=== PATIENT | female | born 1970 | race Caucasian/White ===

== ENCOUNTER 2019-06-02 06:05 | Inpatient (IN) ==
--- NOTE | 2019-05-28 11:35 | Anesthesiology Consultation ---
Date of Service May 28, 2019 Assessment & Plan (1) Encounter for pre-operative examination: Chart Review Chart Review: Acceptable Risk for Surgery (Pending labs) and Patient NOT seen in Pre Admission Testing History Surgery Operation Date: 06/02/19 07:30 Proposed Procedures p Navigational Bronchoscopy with ICG Dye, - Guevara Gunderson MD, FACS s Robotic Left Video Assisted Thoracoscopy with Wedge Resection - Guevara Gunderson MD, FACS Height/Weight Height: 5 ft 3 in Weight: 79.379 kg Allergies Allergy/AdvReac Type Severity Reaction Status Date / Time codeine AdvReac Vomiting Verified 05/14/19 11:37 Medications Home Medications Medication Instructions Recorded Confirmed Last Taken No Known Home Medications 05/14/19 05/14/19 Unknown Past Medical History Medical History Pulmonary nodule Past Family History Family History Father Family history of diabetes mellitus Past Surgical History Surgical History History of ankle surgery LEFT History of colonoscopy History of endometrial ablation History of tubal ligation History of umbilical hernia repair History of wisdom tooth extraction Nausea and vomiting after administration of anesthetic agent History of PONV History of PONV Social History Smoking Status: Never smoker Do You Dip or Chew Tobacco: No Hx Alcohol Use: No Hx Substance Use: No substance use type: does not use Testing Electrocardiogram Date: 01/21/19 Findings: + ST @ (118) Poor R-wave progression. Chest X-Ray Date: 01/21/19 Findings: + NAD
[~2019-06-02 06:05] MED LIST: LR 15ML/HR IV SCH
[2019-06-02 06:36] LABS: Hematocrit (blood only) 40.8 % (37-47); Mean Corpuscular Volume 88.3 fL (80-100); Platelet Count 292 K/uL (130-400); RDW Coefficient of Variation 13.9 % (11.5-14.5); RDW Standard Deviation 45.1 fL (36.4-46.3); Red Blood Count 4.62 M/uL (4.2-5.4); White Blood Count 6.72 K/uL (4.8-10.8)
[2019-06-02 06:40] LABS: Mean Corpuscular Hgb Conc 34.3 g/dL (32-36)
[2019-06-02 06:56] LABS: BUN Creatinine Ratio 16.8 (10-20); Creatinine Clr Calc Pharmacy 101.7 ml/min; Est GFR (African American) 119.4; Potassium 4.1 mmol/L (3.5-5.1)
[2019-06-02] MEDS ORDERED: MIDAZOLAM HCL 1 MG/ML 2ML VIAL ONE (06:58)
[2019-06-02] MEDS ORDERED: fentaNYL citrate 100 MCG/2 ML VIAL ONE (06:58)
[2019-06-02] MEDS ORDERED: ONDANSETRON INJ 2 MG/ML 2 ML VIAL IV PRN ×2 (07:02→13:08)
[2019-06-02] MEDS ORDERED: LABETALOL HCL IV 5 MG/ML 20ML IV PRN (07:02)
[2019-06-02] MEDS ORDERED: PROMETHAZINE HCL 6.25 MG in SODIUM CHLORIDE 0.9% 50 ML IV PRN (07:02)
[2019-06-02] MEDS ORDERED: KETOROLAC 30 MG/ML VIAL IV PRN (07:02)
[2019-06-02] MEDS ORDERED: ATROPINE SULFATE 0.1 MG/ML 10ML SYR IV PRN (07:02)
--- NOTE | 2019-06-02 07:08 | History & Physical Bridge Note ---
Date of Service June 02, 2019 History & Physical Bridge Note I have examined the patient, reviewed the History & Physical and in the interval since the performance of the History & Physical I have noted the following changes of clinical significance: no changes noted
[2019-06-02] MEDS ORDERED: SODIUM CHLORIDE 0.9% PF 50 ML VIAL ONE (07:19)
[2019-06-02] MEDS ORDERED: BUPIVACAINE LIPOSOME 1.3% 266 MG/20 ML VIAL ONE (07:19)
[2019-06-02] MEDS ORDERED: BUPIVACAINE 0.5 % 5 MG/1 ML MPF 30ML VIAL ONE (07:19)
--- NOTE | 2019-06-02 07:24 | History & Physical Report ---
Date of Service June 02, 2019 Assessment & Plan (1) Encounter for pre-operative examination: Present on Admission?: Yes (2) Pulmonary nodules/lesions, multiple: We are going to proceed with an elective electromagnetic navigational bronchoscopy and marking of at least 2 of the lesions on the left side. We will then proceed with a robot-assisted thoracoscopic wedge resection guided by the indocyanine green dye. We will do frozen section to have primary answer about what is causing these nodules. Present on Admission?: Yes History of Present Illness Chief Complaint: Dr. Gunderson is going to take some nodules out of my lung. Primary Care Provider: Denis Starr This very nice 48-year-old female that I met back in March. She has bilateral luminary nodules. They have been present for many years but they have begun to grow and now shows some hypermetabolic activity. He has no systemic symptoms whatsoever. I had a long talk with the patient and her on 04/08/2019 and again today on 06/02/2019. We discussed this again this morning. We are going to perform a navigational bronchoscopy and marking this with indocyanine green dye wedge out to left lung nodules. One is in the left upper lobe and one is in the left lower lobe. We discussed risk and benefits including pneumonias, blood clots, air leaks, etc. She understands. We will proceed today. Allergies Allergy/AdvReac Type Severity Reaction Status Date / Time codeine AdvReac Vomiting Verified 06/02/19 06:26 Home Medications Home Medications Medication Instructions Recorded Confirmed Type No Known Home Medications 05/14/19 06/02/19 History Past Med/Surg History Medical History Pulmonary nodules/lesions, multiple Pulmonary nodule Surgical History History of ankle surgery LEFT History of colonoscopy History of endometrial ablation History of tubal ligation History of umbilical hernia repair History of wisdom tooth extraction Nausea and vomiting after administration of anesthetic agent Family History Father Family history of diabetes mellitus Social History Preferred Language: Serbian Communication Ability: Effective Quality Auditor Required: No Beliefs That Will Affect Care: None Current Living Situation: Spouse Other Information That Helps Us Care for You: No Feels Safe at Home: Yes Safety Concerns: Feels Safe At This Time Smoking Status: Never smoker Do You Dip or Chew Tobacco: No Second Hand Exposure: No Hx Alcohol Use: No Hx Substance Use: No Review of Systems Review of Systems: All systems reviewed & are unremarkable except as noted in HPI & below Patient specifically denies productive cough, dyspnea on exertion, or hemoptysis. She has had no weight loss. Has had no exotic travel and has had no exposures to anyone with tuberculosis. She is not immunocompromise. The rest of her review of systems is unremarkable except for the fact that she broke her ankle and had surgery for repair. Physical Exam Physical Exam: This is a well-developed well-nourished female who is awake alert and oriented. Pupils are equal round reactive. Sclera anicteric. Teeth in good repair. Tongue is midline. She has no oral mucosal lesions. Her neck is thick but supple. She has no supraclavicular cervical lymphadenopathy carotid bruits or thyroid nodules. Her lungs are clear. She has a regular rate and rhythm of her heart. Her abdomen is soft nontender. She has good peripheral pulses. Her left ankle is improved. Neurologically she is completely intact. Results & Data Vital Signs (Past 12 Hours) Vital Signs Temp Pulse Resp BP Pulse Ox 06/02/19 06:27 36.9 C 71 20 134/90 99
[2019-06-02] MEDS ORDERED: CEFAZOLIN 2,000 MG/15 ML IV PUSH IV ONE (07:31)
[2019-06-02] MEDS: CEFAZOLIN 2000MG 2,000 MG/15 ML SYR IV ONE ×2 (07:49→13:38)
[2019-06-02] MEDS ORDERED: INDOCYANINE GREEN 25 MG/10 ML INJ ONE (08:52)
[2019-06-02] MEDS ORDERED: NEOSTIGMINE METHYLSULFATE 5 MG/5 ML SYR ONE (10:10)
[2019-06-02] MEDS ORDERED: DEXAMETHASONE SOD INJ 4 MG/ML VIAL ONE (10:10)
[2019-06-02] MEDS ORDERED: PHENYLEPHRINE 100MCG/ML 5ML SYR ONE (10:10)
[2019-06-02] MEDS ORDERED: ROCURONIUM BROMIDE 10 MG/ML 5 ML VIAL ONE (10:10)
[2019-06-02] MEDS ORDERED: LIDOCAINE HCL 2% 2 ML VIAL/AMP(20MG/ML) INFIL ONE (10:10)
[2019-06-02] MEDS ORDERED: LARYING-O-JET KIT (LTA) ONE (10:10)
[2019-06-02] MEDS ORDERED: ONDANSETRON INJ 2 MG/ML 2 ML VIAL ONE (10:10)
[2019-06-02] MEDS ORDERED: ePHEDrine sulfate 50 MG/ML SYR ONE (10:10)
[2019-06-02] MEDS ORDERED: PROPOFOL IV EMULSION 10 MG/ML 20 ML VIAL IV ONE (10:10)
[2019-06-02] MEDS ORDERED: GLYCOPYRROLATE 0.2 MG/ML VIAL ONE (10:10)
--- NOTE | 2019-06-02 10:17 | Post Operative Brief Note ---
Immediate Post Op Note v1 Date of Surgery June 02, 2019 Pre & Post Diagnosis Operation Date: 06/02/19 07:30 Pre-Op Diagnosis: Left Pulmonary Nodules Post-Op Diagnosis: Apparent spindle cell tumor Procedure Operation Date: 06/02/19 07:30 Actual Procedures p Navigational Bronchoscopy with ICG Dye, - Guevara Gunderson MD, FACS s Robotic Left Video Assisted Thoracoscopy with Wedge Resection(Left) - Guevara Gunderson MD, FACS Surgeon Guevara Gunderson MD, FACS Branch [employer] Executive Yamel SINCLAIR, Janette Mcintyre CC3 Estimated Blood Loss 10 Findings Consistent with Post-Op Diagnosis Drains Chest Tube
[2019-06-02] MEDS ORDERED: METOCLOPRAMIDE HCL INJ 5 MG/ML 2 ML VIAL IV ONE (10:35)
--- NOTE | 2019-06-02 10:51 | XRay Report ---
XR chest 1V portable HISTORY: 48 years-old Female left lung wedge resection status post wedge resection of the left lung COMPARISON: Chest CT 04/21/2019 TECHNIQUE: Portable AP view of the chest FINDINGS: Patient is side bent. Cardiac silhouette is upper limits of normal in size. Lungs are hypoinflated wi th bronchovascular crowding. Interstitial coarsening throughout the left lung with bibasilar opacitie s. Left-sided chest tube terminates adjacent to the left lung apex. No definite pneumothorax identifi ed. Minimal subcutaneous emphysema about the lateral left chest wall. No large pleural effusion. Bone s appear grossly intact. IMPRESSION: 1. Left-sided chest tube terminates adjacent to the left lung apex. No definite pneumothorax identifi ed. 2. Hypoinflated lungs with bronchovascular crowding and bibasilar opacities. The above report was generated using voice recognition software. It may contain grammatical, syntax o r spelling errors. Electronically signed by: Tushar Sharpe M.D. 06/02/2019 10:50 AM
[2019-06-02] MEDS: HYDROmorphone INJ 1 MG/ML SYRINGE IV PRN ×4 (11:04→11:20)
--- NOTE | 2019-06-02 12:28 | Fluoroscopy Report ---
FL chest 1V frontal CLINICAL HISTORY: NAVIGATIONAL BRONCH COMPARISON STUDY: Chest CT April 21, 2019. FLUOROSCOPY TIME: 50 seconds. FLUOROSCOPIC IMAGES: 1. FINDINGS: This image was obtained during navigational bronchoscopy within the left lung. IMPRESSION: Fluoroscopic image from navigational bronchoscopy within the left lung. Electronically signed by: Vic Todd M.D. 06/02/2019 12:27 PM
--- NOTE | 2019-06-02 13:20 | Anesthesiology Progress Note ---
Date of Service June 02, 2019 Anesthesia Post Procedure Vital Signs Vital Signs: Temp Pulse Pulse Pulse Resp BP BP 06/02/19 12:30 84 17 127/78 06/02/19 12:25 85 17 120/79 06/02/19 12:20 84 21 124/83 06/02/19 12:15 85 21 119/83 06/02/19 12:10 82 20 123/85 06/02/19 12:05 80 23 127/84 06/02/19 12:02 36.4 C L 06/02/19 12:00 82 24 133/86 06/02/19 11:55 80 23 120/82 06/02/19 11:54 84 16 06/02/19 11:50 83 23 125/82 06/02/19 11:45 77 21 132/88 06/02/19 11:40 79 21 124/89 06/02/19 11:35 77 22 125/79 06/02/19 11:31 81 20 06/02/19 11:30 78 17 126/81 06/02/19 11:26 16 126/81 06/02/19 11:25 78 21 06/02/19 11:21 77 20 128/83 06/02/19 11:20 81 22 06/02/19 11:17 80 22 06/02/19 11:16 80 22 136/93 06/02/19 11:15 78 23 06/02/19 11:10 78 24 137/93 06/02/19 11:05 79 24 136/97 06/02/19 11:01 78 21 137/97 06/02/19 11:00 78 24 06/02/19 10:55 79 20 144/89 H 06/02/19 10:51 84 22 129/82 06/02/19 10:50 83 24 06/02/19 10:46 85 24 145/81 H 06/02/19 10:45 91 H 21 06/02/19 10:42 94 H 17 159/103 H 06/02/19 10:41 36.0 C L 98 H 20 159/103 H 06/02/19 06:27 36.9 C 71 20 134/90 Pulse Ox 06/02/19 12:30 93 06/02/19 12:25 93 06/02/19 12:20 93 06/02/19 12:15 93 06/02/19 12:10 92 06/02/19 12:05 93 06/02/19 12:02 06/02/19 12:00 93 06/02/19 11:55 93 06/02/19 11:54 92 06/02/19 11:50 92 06/02/19 11:45 06/02/19 11:40 06/02/19 11:35 06/02/19 11:31 94 06/02/19 11:30 06/02/19 11:26 93 06/02/19 11:25 93 06/02/19 11:21 93 06/02/19 11:20 94 06/02/19 11:17 94 06/02/19 11:16 95 06/02/19 11:15 95 06/02/19 11:10 95 06/02/19 11:05 94 06/02/19 11:01 93 06/02/19 11:00 92 06/02/19 10:55 94 06/02/19 10:51 91 06/02/19 10:50 92 06/02/19 10:46 94 06/02/19 10:45 96 06/02/19 10:42 96 06/02/19 10:41 95 06/02/19 06:27 99 Pain Intensity Left Chest: Pain Intensity: 3 Transfer of Care Handoff Completed per policy Notes Mental Status: alert / awake / arousable Patient Amnestic to Procedure: Yes Nausea / Vomiting: adequately controlled Pain: adequately controlled Airway Patency, RR, SpO2: stable & adequate BP & HR: stable & adequate Hydration State: stable & adequate Anesthetic Complications: no major complications apparent
--- NOTE | 2019-06-02 13:59 | Operative Report ---
DATE OF OPERATION: 06/02/2019 PREOPERATIVE DIAGNOSIS: Multiple pulmonary nodules. 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 SURGEON: Guevara Gunderson MD LETTERER: DOTTIE Beltran and sepideh Allred warehouse stock clerk 3 (Mr. Curtis was present for the entire case at the patient's bedside while I was at the console and closed incisions at the end). PROCEDURES: 1. Electromagnetic navigational bronchoscopy with marking of left upper lobe lesion and lingular lesion with indocyanine green dye. 2. Robot-assisted thoracoscopic wedge resection and lymph node biopsy, both upper lobe and lingula. ANESTHESIA: General anesthesia endotracheal intubation. INDICATION FOR PROCEDURE AND FINDINGS: Lainey Garza is a 48-year-old female who was found to have bilateral nodules which have been present for several years, but appeared to be getting slightly larger, showed some hypermetabolic activity on PET scan. For this reason, we were asked to see her and I felt that we could marge two of these lesions on the left and hopefully wedge out both. On 06/02/2019, the patient was brought to the operating room and underwent an uncomplicated electromagnetic navigational bronchoscopy and marking of these 2 left upper lobe lesions. We then proceeded with a robot-assisted thoracoscopic wedge resection of the lingular mass and some other odd-appearing masses on the surface of the lung. We also took out a couple of lymph nodes, one of which was a bit larger level 10. She really did not have an early conclusion of the case, did well. Frozen section showed this to be a spindle cell tumor. We have to wait for immunohistochemical stains to clarify this diagnosis more. DESCRIPTION OF PROCEDURE: The patient was brought to the operating room and laid in supine position. General anesthesia induced and endotracheal intubation was performed with a single lumen tube. A fiberoptic bronchoscope was placed and the airway was inspected. There were no endobronchial lesions nor were there really any mucus. The navigational probe from [facility] was then loaded through the working channel and we registered the airways. I then went up to the left upper lobe mass and marked this with 0.5 mL of indocyanine green with 5 mL of air. We then went down into the lingula and I repeated this. We were able to marge these and got ourselves to them with the [employer] navigational probe as well as a radial ultrasound. After the bronchoscope was removed, we turned the patient into the right lateral decubitus position and her left chest prepped and draped in usual sterile fashion. It should be noted, we called the timeout and gave prophylactic antibiotics before the bronchoscopy. We then placed 4 different ports. We placed a single 8.5 camera port a bit anterior to the mid axillary line in the seventh interspace. One lung ventilation ensued. We then placed two 8 mm ports anterior and posterior, assistance port anteriorly just above the diaphragm. We injected each of these ports with Exparel solution. We mixed with 20 mL of 266 mg of Exparel with 30 mL of 0.5% bupivacaine and 250 mL of normal saline. Not only were these used to inject each of the 4 ports, but also the intercostal space from the 2nd through 11th rib. After entering, we could see there were no adhesions. We had pretty good fissures. Using the fluorescence, we were able to see the mass in the lingula and we wedged out a fairly good size portion of the lingula. We then went after the second one, although we could see the dye and we wedged this out, it did not have the solid consistency of the first mass. We then irrigated out the chest, really did not see much of the air leak. We dissected out a large level 10 node as well as a level 11 node. I put a 24-Bhutanese chest tube via the electrical assistant's port and directed towards the apex. This was held in place with heavy silk suture. A 4-0 Monocryl was used to close the other 3 incisions. The patient tolerated the procedure quite well, was extubated and then transported back to the postanesthesia care unit in stable condition. I attest to the content of the Intraoperative Record and any orders documented therein. Any exception s are noted below.
[2019-06-02] MEDS: D5W AND 1/2NSS 1,000 ML IV SCH ×2 (14:08→22:44)
[2019-06-02] MEDS: ACETAMINOPHEN 1,000 MG/100 ML VIAL IV SCH ×2 (14:08→21:21)
[2019-06-02] MEDS: METOCLOPRAMIDE HCL INJ 5 MG/ML 2 ML VIAL IV SCH (18:42)
[2019-06-02] MEDS: TRAMADOL HCL 50 MG TABLET PO PRN (18:42)
[2019-06-02] MEDS: DOCUSATE SODIUM 100 MG CAP PO SCH (21:21)
[2019-06-03] MEDS: METOCLOPRAMIDE HCL INJ 5 MG/ML 2 ML VIAL IV SCH (03:40)
[2019-06-03] MEDS: TRAMADOL HCL 50 MG TABLET PO PRN (04:21)
[2019-06-03 05:51] LABS: Prothrombin Time 10.6 Seconds (9.0-12.0)
[2019-06-03] MEDS: ACETAMINOPHEN 1,000 MG/100 ML VIAL IV SCH (06:25)
--- NOTE | 2019-06-03 07:08 | XRay Report ---
XR chest 1V portable HISTORY: 48 years-old Female left wedge resection status post left-sided wedge resection COMPARISON: Chest radiograph 06/02/2019 TECHNIQUE: Portable AP view of the chest FINDINGS: Cardiac silhouette is unchanged. Hypoinflated lungs with bronchovascular crowding and bibasilar opaci ties suggestive of atelectasis. Left-sided chest tube is stable in positioning terminating adjacent t o the left lung apex. Postoperative changes of the left lung. No definite left-sided pneumothorax shelia ntified. IMPRESSION: 1. Postoperative changes of the left lung with stable positioning of the left-sided chest tube. 2. No definite pneumothorax identified. 3. Hypoinflation with bronchovascular crowding and bibasilar atelectasis. The above report was generated using voice recognition software. It may contain grammatical, syntax o r spelling errors. Electronically signed by: Tushar Sharpe M.D. 06/03/2019 7:07 AM
[2019-06-03] MEDS: MoRPHine SULFATE 2 MG/ML CARP IV PRN ×2 (08:15→08:18)
[2019-06-03] MEDS: DOCUSATE SODIUM 100 MG CAP PO SCH (08:22)
[2019-06-03] MEDS: D5W AND 1/2NSS 1,000 ML IV SCH (08:26)
[2019-06-03] MEDS ORDERED: ENOXAPARIN INJ 40 MG/0.4 ML SYR SQ SCH (09:00)
--- NOTE | 2019-06-03 10:55 | XRay Report ---
XR chest 1V portable HISTORY: 48 years-old Female chest tube removal status post removal of the left-sided chest tube COMPARISON: Chest radiograph of same day at 6:32 AM TECHNIQUE: Portable AP view of the chest FINDINGS: Postoperative changes of the lung redemonstrated. Status post removal of the left-sided chest tube. A suture line is noted projecting over the lateral left upper lung with possible associated pleural li ne. Hypoinflated lungs with bronchovascular crowding and persistent bibasilar opacities. Cardiomedias tinal and hilar silhouettes are unchanged. Bones appear grossly intact. IMPRESSION: 1. Postoperative changes of the left lung redemonstrated. Status post removal of the left-sided chest tube with possible small left pneumothorax. This could be confirmed with inspiratory and expiratory films if of further clinical concern. 2. Hypoinflation with persistent bibasilar opacities favoring atelectasis. The above report was generated using voice recognition software. It may contain grammatical, syntax o r spelling errors. Electronically signed by: Tushar Sharpe M.D. 06/03/2019 10:53 AM
--- NOTE | 2019-06-03 23:10 | Discharge Summary ---
DISCHARGE DIAGNOSIS: 1. Multiple pulmonary nodules. 2. Diagnosis unclear, appear to be a spindle cell tumor. HOSPITAL COURSE: Lainey Garza is a 48-year-old female who has been noted to have bilateral pulmonary nodules for at least the last 6 years and they have grown recently. It is minimal, but still appears to have had some growth. We had a long discussion in the office several weeks ago. We elected to proceed with a biopsy. On 06/02/2019, the patient underwent an Electromagnetic navigational bronchoscopy with marking of 2 of the nodules in her left upper lobe. I removed a portion of her lingula and biopsied part of her upper lobe. The larger nodule had a frozen section and this appeared to be a spindle cell tumor. It may well be a neurofibroma; however, it is unclear and will require further testing. The patient tolerated the procedure well. Blood loss was negligible. She had no air leak. I removed her chest tube the following morning and she looked quite good. She was very anxious. We put her on Ativan and tramadol to go home. She was very concerned about her pain. We had a long talk about this. She is on room air and I think she looks much better. We will send her home and I will see her back in the office next week to go over final pathology. I am quite pleased with how much better, she looks after her chest tube came out.
== END 2019-06-03 11:11 | disposition home or self-care (01) | DRG 165 ==
LOC: ASU 06:05 → 3W 10:26